=== PATIENT | female | born 1985 | race Caucasian/White ===

== ENCOUNTER 2016-11-03 03:46 | Emergency (ER) | payer MEDICAID, OTHER ==
[~2016-11-03] VITALS: Ht 170.2 cm; Wt 60.0 kg
[~2016-11-03 03:46] MED LIST: LEVO500T16 PO; NICO1PAT6 TOPICAL
[2016-11-03 03:57] VITALS: BP 135/88; PULSE 64; RESP 16; O2SAT 98
--- NOTE | 2016-11-03 05:07 | ED.REPORT ---
HPI-Extremity Problem Lower Date of Service November 03, 2016 ED Provider: Butch Appiah MD Pt is a 31 y.o. female with a hx of PE who presents to the ED c/o bilateral lower extremity swelling onset 1 week ago. She states that her right lower extremity has had more swelling than her left, but her left lower extremity dramatically increased in size over the last 2 days. She denies any associated pain. She denies taking blood thinners. Nursing Notes Stated Complaint: SWOLLEN FEET Chief Complaint: Extremity Trauma Nursing Notes Reviewed: Yes Allergies: Coded Allergies: No Known Allergies (Verified Allergy, Unknown, 11/03/16) Scheduled Levofloxacin (Levaquin) 500 Mg Tablet 500 MG PO DAILYAC Nicotine 21 mg/24 hr Patch (Nicotine 21 mg/24 hr Patch) 1 Each Patch.td24 1 PATCH TOPICAL DAILY General Time Seen by MD: 04:48 Chief Complaint Leg injury right, Leg injury left Hx Obtained From: Patient Arrived By: Walk-in Onset Occurred: 1 week ago Symptom Duration: Since onset Severity: Current: No pain currently Severity: Maximum: No pain Past Medical History Past Medical History Notes: IVDA and current smoking heroin Past Medical History Reports: Asthma Past Surgical History None reported Smoking History Current Every Day Smoker Social History Drug Use: In recovery, IV drugs Ambulatory Status Independent Review of Systems Musculoskeletal: Reports: Extremity swelling (Lower extremity, bilateral), Denies: Extremity pain Complete sys rev & neg: except as marked. Cardiovascular: Reports: Edema, Denies: Chest pain Physical Exam Initial Vital Signs Vital Signs (First) Date Time Temp Pulse Resp B/P Pulse Ox O2 Delivery O2 Flow Rate FiO2 11/03/16 03:57 36.0 64 16 135/88 98 Room Air Initial VS: Reviewed, Vital signs normal Head / Eyes: Atraumatic, Normocephalic Abdomen / GI: No distention Upper Extremities: Vascular intact, Neuro intact Skin: Warm, Dry, No cyanosis Neurologic: Alert, Oriented, Nonfocal Psychiatric: Mood/affect normal, Behavior normal, Normal thought content Lower Extremity / Pelvis / MS: Atraumatic, No erythema, No deformity, Neurologic intact, Vascular intact No evidence of cellulitis Ankle / Foot: Atraumatic, No erythema, Non-tender, No deformity, Neurologic intact, Vascular intact General/Constitutional: Awake, Alert, No acute distress, Well appearing, Well developed, Well hydrated, Well nourished, Not toxic appearing Respiratory / Chest: Atraumatic, Breath sounds NL, Breath sounds = bilat, No respiratory distress Cardiovascular: Heart rate NL, Regular rhythm, Heart sounds NL, Peripheral circulation NL Lower Ext Edema: Positive: Left 1+, Left 2+, Pitting, Right 1+, Right 2+ Interpretation & Diagnostics Lab Results Interpretation Result Diagram: 11/03/16 0545 11/03/16 0545 Test 11/03/16 05:45 White Blood Count 6.6th/mm3 (3.8-10.1) Red Blood Count 3.89mil/mm3 (3.90-5.20) Hemoglobin 12.8g/dL (12.0-15.6) Hematocrit 35.7% (35.0-46.0) Mean Corpuscular Volume 91.8fL (81-100) Mean Corpuscular Hemoglobin 32.9pg (27.0-35.0) Mean Corpuscular Hemoglobin Concent 35.9% (32.0-37.0) Red Cell Distribution Width 11.2% (12.3-15.4) Platelet Count 249bil/L (150-400) Neutrophils (%) (Auto) 49.8% (40-74) Lymphocytes (%) (Auto) 32.8% (14-46) Monocytes (%) (Auto) 11.8% (4-12) Eosinophils (%) (Auto) 4.7% (0-5) Basophils (%) (Auto) 0.6% (0-3) D-Dimer < 0.50mg/L FEU (<0.50) Sodium Level 141mEq/L (134-144) Potassium Level 4.0mEq/L (3.5-5.2) Chloride Level 102mEq/L (97-108) Carbon Dioxide Level 26mmol/L (18-29) Blood Urea Nitrogen 10mg/dL (6-20) Creatinine 0.51mg/dL (0.57-1.00) Estimat Glomerular Filtration Rate 201mL/min (>59) Glucose Level 73mg/dL (60-99) Calcium Level 9.3mg/dL (8.5-10.1) Magnesium Level 1.9mg/dL (1.6-2.6) Total Bilirubin 0.4mg/dL (0.0-1.2) Aspartate Amino Transf (AST/SGOT) 19U/L (0-50) Alanine Aminotransferase (ALT/SGPT) 12U/L (0-32) Alkaline Phosphatase 41U/L (25-150) Total Protein 7.0g/dL (6.4-8.4) Albumin 4.6g/dL (3.4-5.0) Hold Reddy Top Tube Received (Received) Lab values outside NL range: no clinical significance. Re-Eval/Medical Decision Med Decision/Clinical Course 31-year-old female who presents with bilateral lower extremity edema and concern for this being a manifestation for serious illness like kidney disease or DVT. She does have a history of PE. Screening labs were done and a d-dimer was ordered. Her care is now being turned over at change of shift to Dr. Feliberto Montanez. Source of Hx: Old records Re-Evaluation/Progress #1: Time of Eval: 05:17 Re-Evaluation/Progress Note: Discussed need for d-dimer, pt understands and agrees with plan. Re-Evaluation/Progress #2: Time of Eval: 06:00 Re-Evaluation/Progress Note: Pt care transferred to Dr. Montanez Counseled Regarding: Diagnosis, Lab results Discharge & Departure Shift Change Sign-Out Patient Care Transferred: Yes (Dr. Montanez) Discussed Complaint(s): Yes Impression: Primary Impression: Edema Edema type: localized Qualified Code: R60.0 - Localized edema Discharge Condition All VS Reviewed: Yes Condition: Improved Referrals: NOPCP (PCP) Care Transferred to: Dr. Montanez Care Transferred at: 06:00 Sohan Attestation Portions of this note were transcribed by Austen Crawford. I, Dr. Appiah personally performed the history, physical exam and medical decision-making; I reviewed and confirmed the accuracy of the information in the transcribed note. Signed by: Sohan Hogan, 11/03/16 and 601 Butch Appiah MD November 03, 2016 05:07 AUSTEN CRAWFORD November 03, 2016 05:14
[2016-11-03 06:20] VITALS: BP 130/78; PULSE 64; RESP 16; O2SAT 98
[2016-11-03 06:21] LABS: BASOPHILS % (AUTO) 0.6 % (0-3); EOSINOPHILS % (AUTO) 4.7 % (0-5); MONOCYTES % (AUTO) 11.8 % (4-12); Mean Corpuscular Hemoglobin 32.9 pg (27.0-35.0); Mean Corpuscular Volume 91.8 fL (81-100); NEUTROPHILS % (AUTO) 49.8 % (40-74); Platelet Count 249 bil/L (150-400)
[2016-11-03 06:22] LABS: Magnesium 1.9 mg/dL (1.6-2.6)
[2016-11-03 07:22] LABS: APPEARANCE,URINE CLEAR (CLEAR,HAZY); COLOR,URINE YELLOW (YELLOW)
[2016-11-03 07:23] LABS: OCCULT BLOOD,URINE NEGATIVE (NEGATIVE); UROBILINOGEN,URINE NORMAL (NORMAL)
[2016-11-03] MEDS ORDERED: FURO-129 PO (07:56)
--- NOTE | 2016-11-03 08:07 | DRSVH ---
PROCEDURE: US VENOUS LEG DUPLEX BILATERAL INDICATIONS: lower ext edema, h/o PE TECHNIQUE: Real-time imaging, as well as color and pulse Doppler interrogation, were performed of the deep veins of both legs from the inguinal ligament to the popliteal fossa. COMPARISON: None. FINDINGS: The deep veins are normally compressible, and free of intraluminal thrombus. Color and pu lse Doppler demonstrate normal phasic intravascular flow. There is normal augmentation response to d istal compression maneuver. IMPRESSION: 1. In this patient with swollen feet there is no evidence for deep venous thrombosis in either lower extremity. Dictated by: Ronan Borrero M.D. on 11/03/2016 at 8:05 Approved by: Ronan Borrero M.D. on 11/03/2016 at 8:06
== END 2016-11-03 08:30 | disposition home or self-care (01) ==
LOC: SED 03:46
DX: R60.0 Localized edema (principal); J45.909 Unspecified asthma, uncomplicated; F17.210 Nicotine dependence, cigarettes, uncomplicated; F11.10 Opioid abuse, uncomplicated; Z86.711 Personal history of pulmonary embolism